=== PATIENT | female | born 1955 | race Two or more races ===

== ENCOUNTER 2019-07-02 16:13 | Emergency (ER) | payer OTHER ==
[~2019-07-02] VITALS: Ht 165.1 cm; Wt 68.0 kg
[2019-07-02 19:59] LABS: Basophils # (auto) 0 uL; Basophils % (auto) 0.3 % (0.0-2.0); Eosinophils # (auto) 0 uL; Hematocrit 42.4 % (36.0-46.0); Hemoglobin 14.2 g/dL (12.2-16.2); Lymphocytes # (auto) 0.6 uL; Lymphocytes % (auto) 4.7 % (10.0-50.0); Mean Corpuscular Hemoglobin 31.4 pg (28.0-32.0); Mean Corpuscular Hgb Conc. 33.5 g/dL (32.0-36.0); Mean Corpuscular Volume 93.8 fL (80.0-100.0); Monocytes # (auto) 0.6 uL; Monocytes % (auto) 5.3 % (0.0-12.0); Neutrophils # (auto) 10.6 uL; Neutrophils % (auto) 89.7 % (37.0-80.0); Platelet Count (auto) 256 10^3/uL (140-450); Red Blood Cells 4.52 10^6/uL (4.0-5.20); White Blood Cell 11.8 10^3/uL (4.4-10.8)
[2019-07-02] MEDS ORDERED: ONDANSETRON HCL 4 MG/2 ML VIAL IV ONE (20:00)
[2019-07-02] MEDS ORDERED: MORPHINE SULFATE 4 MG/ML SYR/VIAL IV ONE (20:00)
[2019-07-02 20:19] LABS: BUN/Creatinine Ratio 24.2; Calcium 8.5 mg/dL (8.5-10.1); Potassium 3.9 mmol/L (3.5-5.1)
[2019-07-02 20:22] LABS: Total Protein 6.9 g/dL (6.4-8.2)
[2019-07-02 20:23] LABS: INR 1.01 (0.9-1.15); Partial Thromboplastin Time 26.2 sec (23.64-32.05)
[2019-07-02] MEDS ORDERED: TETANUS-DIPTH-ACEL PERTUSSIS 0.5ML SYRG IM ONE (21:15)
[2019-07-02 22:23] VITALS: BP 153/94
== END 2019-07-02 22:59 | disposition short-term general hospital (02) ==
LOC: ER 16:20
DX: S22.42XA Multiple fractures of ribs, left side, initial encounter for closed fracture (principal); S01.01XA Laceration without foreign body of scalp, initial encounter; S27.2XXA Traumatic hemopneumothorax, initial encounter; S09.8XXA Other specified injuries of head, initial encounter; S50.812A Abrasion of left forearm, initial encounter; S50.811A Abrasion of right forearm, initial encounter; V86.59XA Driver of other special all-terrain or other off-road motor vehicle injured in nontraffic accident, initial encounter; Y93.89 Activity, other specified; Y92.488 Other paved roadways as the place of occurrence of the external cause; Y99.8 Other external cause status
CPT/HCPCS: 12001; 36415; 70450; 71101; 71250; 72125; 80053; 85025; 85610; 85730; 90471; 90715; 93005; 94761; 96374; 96375; 99285; J2270; J2405

== ENCOUNTER 2022-05-17 14:53 | Emergency (ER) | payer MEDICARE, OTHER ==
[~2022-05-17] VITALS: Ht 165.1 cm; Wt 69.9 kg
[2022-05-17 15:34] VITALS: BP 141/90
[2022-05-17] MEDS ORDERED: GABA300C10 PO ×2 (17:47→18:52)
[2022-05-17] MEDS ORDERED: BACL10TA PO ×2 (17:48→18:52)
== END 2022-05-17 18:07 | disposition home or self-care (01) ==
LOC: ER 14:53
DX: M54.30 Sciatica, unspecified side (principal); I10 Essential (primary) hypertension